=== PATIENT | female | born 2000 | race Caucasian/White ===

== ENCOUNTER 2024-10-09 13:41 | Outpatient (CLI) | payer OTHER, SELFPAY ==
--- OUTSIDE RECORDS SUMMARY | 2024-10-09 14:55 | XMS_ITS | Encounter Summary ---
Author Organization [facility] Address [address] [place] [address] Care Team Providers Care General Road Supervisor Name Role Phone Adele Rogers MD Primary Care Provider [phone] Reason for Visit * Reason Onset Date Comments MEDICATION REFILL 09/14/2016 Encounter Details Date Type Department Care Team (Late st Contact Info) Description 09/14/2016 Refill [facility] Pediatrics - Endocrinology [facility] [place] [address] Jesus Chandler APRN-[employer] F[employer]OR[employer]ERSON [address] [place] [address] MEDICATION REFILL Social History Tobacco Use Types Packs/Day Years Used Date Smoking Tobacco: Never Comments Unknown Sex and Gender Information Value Date Recorded Sex Assigned at Not on file Legal Sex Female 1:54 PM CDT Gender Identity Not on file Sexual Orientation Not on file documented as of this encounter Functional Status * Is person deaf or have serious hearing difficulty? Answer Date of Assessment Author No 09/02/2015 7:30 PM DEANDRET Charley Shelton RN * Is person blind or have serious difficulty seeing? Answer Date of Assessment Author No 09/02/2015 7:30 PM CDT Charley Shelton RN * Does person have serious difficulty walking/climbing stairs? Answer Date of Assessment Author No 09/02/2015 7:30 PM DEANDRET Charley Shelton RN * Does person have difficulty dressing/bathing? Answer Date of Assessment Author No 09/02/2015 7:30 PM CDT Charley Shelton RN * Does person have difficulty doing errands alone? Answer Date of Assessment Author No 09/02/2015 7:30 PM Charley Anderson RN documented as of this encounter Mental Status * Does person have difficulty concentrating/remembering/making decisions? Answer Entry Date Author No 09/02/2015 7:30 PM Charley Anderson RN documented in this encounter Plan of Treatment Not on file documented as of this encounter Visit Diagnoses Not on filedocumented in this encounter Care Teams General Road Supervisor Relationship Specialty Start Date End Date Adele Rogers MD [address] [place] [address] PCP - General Family Medicine 09/02/15 documented as of this encounter
--- OUTSIDE RECORDS SUMMARY | 2024-10-09 14:55 | XMS_ITS | Clinical Summary ---
Author Organization [address] Address [address] [place] [address] [place] [address] Care Team Providers Care Dredge Master Name Role Phone Flory Maciel MD Primary Care Provi peg Allergies No known active allergies Medications glucagon 1 mg kit Inject 1 mL (1 mg total) into the muscle as instructed 8 Active pen needle, diabetic 32 gauge x 5/32 needle 1 each by Not Applicable route 6 Active insulin syringe-needle U-100 1/2 mL 31 gauge x 15/64 syringe Use for injections daily when off insulin pump 7 Active insulin lispro (HumaLOG) 100 unit/mL insulin pen Humalog 4 units as needed if your pump does not work 1 pen 3 9 Active DEXCOM G6 SENSOR deviceIndication s:Type 1 diabetes mellitus without complication (HCC) 3 Devices every 30 (thirty) days 9 Device 3 0 Active DEXCOM G6 TRANSMITTER deviceIndication s:Type 1 diabetes mellitus without complication (HCC) 1 Device every 3 (three) months 3 Device 3 0 Active Omnipod Dash Insulin Pod cartridge 2 Active Baqsimi 3 mg/actuation spray,non-aeroso l Administer 1 spray into one nostril as needed 3 Active acetone, urine, test strip 1 strip by other route daily as needed (hyperglycemia) 100 strip 2 3 Active Additional Information Patient not taking.Reported on 06/08/2024 insulin lispro (HumaLOG, ADMELOG) 100 unit/mL vial for injection See Instructions, # 60 mL, 2 total refill(s), Acute 3 Active Slynd tablet tablet 4 Active insulin pump cart,automated,B T (Omnipod 5 G6 Pods, Gen 5,) cartridge CHANGE EVERY 48 HOURS DIRECTED 4 Active rimegepant (Nurtec ODT) tablet,disintegr atingIndications :Migraine with aura and without status migrainosus, not intractable Take 1 tablet (75 mg total) by mouth daily as needed (migraine) 8 tablet 2 4 Active Additional Information Patient not taking.Reported on 06/08/2024 Active Problems Problem Noted Date Diagnosed Date Well adult exam 08/28/2021 Overview (05/24/2024): Encouraged a healthy diet, and regular physical activity to her level Wear sun screen, seat belts No texting/drinking and driving Health Maintenance: 05/24/24 Last PAP: will request record Last Tdap: up to date Last HPV: had February, will request record-SA[facility] Last pneumonia: Patient plans to return to the office next week Last Flu: Up-to-date Last COVID: encouraged Assessment & Plan (05/24/2024 12:55 PM [facility] [employer] [facility]): Health Maintenance: 05/24/24 Last PAP: will request record Last Tdap: up to date Last HPV: had February, will request record-SAFB Last pneumonia: Patient plans to return to the office next week Last Flu: Up-to-date Last COVID: encouraged Assessment & Plan (11/30/2022 12:51 PM CDT): Encouraged a healthy diet, and regular physical activity to her level Wear sun screen, seat belts No texting/drinking and driving Health Maintenance: Last PAP: requesting [facility] pap Last Tdap: due Last HPV: due her last vaccine Last pneumonia: encouraged Last Flu: encouraged Last COVID: encouraged Assessment & Plan (08/28/2021 9:54 AM CDT): Encouraged a healthy diet, and regular physical activity to her level Wear sun screen, seat belts No texting/drinking and driving Health Maintenance: Last PAP: she is following with [facility], planning for pap in the summer Last Tdap: due tap Last pneumonia: reviewed Last Flu: encouraged Last COVID: up to date Type 1 diabetes mellitus with hyperglycemia 08/11 Assessment & Plan (05/24/2024 12:54 PM [employer] [employer]): Chronic. Above goal. Last A1c of 7.8 on 05/2023. Due for A1c, ACR ordered today. Continue to follow with endocrinology, managing insulin pump. Assessment & Plan (04/08/2022 3:48 PM CDT): Chronic, but not well controlled Follow up labs ordered Continue to follow with endo Will request eye exam Will order f/u labs Update me after her next endo appt Call for questions or concerns Assessment & Plan (08/28/2021 9:55 AM CDT): On an insulin pump, dexcom Following with endocrine Will order labs Continue to follow with endo Migraine with aura and witho ut status migrainosus, not intractable 08/28/2021 Assessment & Plan (05/24/2024 12:52 PM [employer]): Chronic. No recent migraines. We will recent script for Nurtec as she was unable to pick this up at her pharmacy last time. Assessment & Plan (04/08/2022 3:49 PM CDT): Chronic condition, not on medication Will have her see her eye doctor Will restart imitrex Keep track of her headaches Call for questions or concerns Assessment & Plan (08/28/2021 10:05 AM CDT): Will start imitrex -Keep a headache diary: Record date, day of week, and time of day as well precipitating and relieving factors -Avoid excessive fatigue (get adequate sleep), but avoid over sleeping on the weekend -Eat at regular times and do not miss meals -Limit foods associated which can make headaches worse like caffeine, chocolate, alcohol -Restrict physical exertion on hot days -Avoid glare or exposure to flickering lights -Avoid noise or strong smells (think perfume, piecer up) Acne vulgaris 08/08/2020 Assessment & Plan (08/28/2021 10:06 AM CDT): Requesting referral to derm Referral placed Assessment & Plan (08/08/2020 10:01 PM [facility]): Referral to derm placed Insulin pump in place 05/08/2019 Assessment & Plan (05/24/2024 12:52 PM [employer]): Stable. Managed by endocrinology Assessment & Plan (04/08/2022 3:49 PM CDT): Continue to follow with endo Assessment & Plan (08/28/2021 9:56 AM CDT): Continue to follow with endo Type 1 diabetes mellitus without complication Overview (11/22/2018): Diagnosed antibody positive 09/02/15; started OmniPod on 12/04/15. Last Assessment & Plan: 1) no changes today 2) must check bg at least 4 times daily 3) return in [address] Andre Assessment & Plan (08/28/2021 9:55 AM CDT): On an insulin pump, dexcom Following with endocrine Will order labs Continue to follow with endo Assessment & Plan (11/22/2018 2:07 PM CDT): Follows with endocrine Update me after your next appointment Continue working on a healthy lifestyle changes Consider diabetic diet/low carb Please have your eye doctor send me a copy of her note Referral placed call for questions or concerns Resolved Problems Problem Noted Date Diagnosed Date Resolved Date Encounter for surveillance of contraceptives 1 08/28/2021 Assessment & Plan (08/08/2020 10:02 PM [employer]): Referral to [facility] placed Acute URI 11/22/2018 08/28/2021 Assessment & Plan (08/08/2020 10:14 PM [employer]): Discussed viral nature of illness, treat symptomatically Tylenol/ibuprofen as needed, and can use medicine like mucinex or robitussin to help with the cough Increase fluids, rest and handwashing Warm saltwater gargles Consider a hot drink with honey Cool mist humidifier Encouraged to repeat COVID testing, and that we could also do Strep. She may have tested to early. Encouraged to self isolate, and to update me on Tuesday Please call if symptoms change or worsen, to the ER for anything emergent Assessment & Plan (11/22/2018 2:07 PM CDT): Discussed viral nature of illness, treat symptomatically Tylenol/ibuprofen as needed Increase fluids, rest and handwashing Warm saltwater gargles Hot water/hot tea with honey Saline rinses to nose at least twice daily No sharing cups or utensils Cool mist humidifier May use vicks vaporub on chest and feet as needed to help with cough Please call if symptoms change or worsen, to the ER for anything emergent Encounters Date Type Department Care Team Description 09/27/2024 Patient Message [facility] Family Medicine [address] [phone] Flory Maciel MD Referral Request from Last 3 Months Immunizations Immunization Administration Dates Next Due DTaP 04/03/2004, 2,2000,07/22,2000 HPV9 02/09/2016,09/10/2015 Hep A, Pediatric 05/02/2008,10/17/2007 Hep B, Adolescent or Pediatric 2000,2000,2000 HiB 06/14/2001,2000,2000 Hib (HbOC) 2000 IPV 04/03/2004, 2,2000,05/24 Influenza, Quadrivalent, Spl it, Preservative Free, Intramuscular 04/08/2022,05/09/2018,04/13/2016 Influenza, Unspecified 03/13/2024,2022,08/28/2021(Defer red: Patient Refused),03/13/2020(Deferred: Patient Refused) MMR 04/03/2004,06/14/2001 Meningococcal MCV4P (Menactra) 03/21/2018,2010 Pneumococcal Conjugate PCV 13 2000, 001,2000 Tdap 03/13/2024,04/13/2011 Varicella 10/17/2007,06/14/2001 Medical History Medical History Date Comments Type 1 diabetes mellitus wit hout complication (HCC) 09/04/2015 Diagnosed antibody positive 09/02/15; started OmniPod on 12/04/15. Last Assessment & Plan: 1) no changes today 2) must check bg at least 4 times daily 3) return in [address] Andre Migraines 2015 Family History Medical History Relation Name Comments Hyperlipidemia Father sam coon Relation Name Status Comments Father sam coon Alive Mother Alive Social History Tobacco Use Types Packs/Day Years Used Date Smoking Tobacco: Never Smokeless Tobacco: Never Alcohol Use Standard Drinks/Week Comments Never 0 (1 standard drink = 0.6 oz pur e alcohol) AUDIT-C Answer Date Recorded Q1: How often do you have a drink containing alc ohol? 2-3 times a week 05/24/2024 Q2: How many drinks containi ng alcohol do you have on a typical day when you are drinking? 3 or 4 05/24/2024 Q3: How often do you have si x or more drinks on one occasion? Never 05/24/2024 PHQ-2 Answer Date Recorded PHQ-2 Total Score (If total score is 3 or more points, staff should administer the PHQ-9) 0 06/08/2024 PHQ-9 Answer Date Recorded PHQ-9 Total Score 0 05/24/2024 Comments No Sex and Gender Information Value Date Recorded Sex Assigned at Not on file Legal Sex Female 9:06 PM [employer] Gender Identity Not on file Sexual Orientation Not on file Obstetrics History Last Filed Vital Signs Vital Sign Reading Time Taken Comments Blood Pressure 110/80 06/08/2024 9:47 AM [facility] [employer] [facility] Pulse 120 06/08/2024 9:47 AM [facility] [employer] [facility] Temperature 36.5 C (97.7 F) 06/08/2024 9:47 AM [facility] Respiratory Rate 16 06/08/2024 9:47 AM [facility] Oxygen Saturation 98% 06/08/2024 9:47 AM [facility] [employer] [facility] Inhaled Oxygen Concentration - - Weight 64.9 kg (143 lb) 06/08/2024 9:47 AM [facility] Height 162.6 cm (5' 4 ) 06/08/2024 9:47 AM [facility] Body Mass Index 24.55 06/08/2024 9:47 AM [facility] [employer] [facility] Plan of Treatment Health Maintenance Due Date Last Done Comments Hepatitis C Screening 2000 Pneumococcal vaccine <65 (1 of 1 - PPSV23) 2006 2000, 2000, 2000 HPV Vaccines (3 - 3-dose series) 05/03/2016 02/09/20 16, 09/10/2015 Dilated Eye Exam 11/05/2022 11/05/2021, 10/30/2020 Covid-19 Vaccine (3 - 2023-2 5 season) 2024 09/05/2020, 08/15/2020 Foot Exam 08/09/2024 08/09/2023, 11/12, 08/28/2021, Additional history exists Cervical Cancer Screening 08/18/2024 08/19/2023 Hemoglobin A1C 11/22/2024 05/24/2024, 05/14, 04/09/2022, Additional history exists Albumin Creatinine Ratio, Urine 05/24/2025 05/24/2024, 06/10/2023, 04/09/2022, Additional history exists Chlamydia and Gonorrhea (GC/ CT) Screening 05/24/2025 05/24/2024, 08/19/2023 Lipid Panel 05/24/2025 05/24/2024, 05/14, 04/09/2022, Additional history exists Regular Well Visit/Exam 18-64 05/24/2025, 11/30/2022, 11/30/2022, Additional history exists TSH Level 05/24/2025 05/24/2024, 05/14, 04/09/2022, Additional history exists eGFR 05/24/2025 05/24/2024, 05/14, 04/09/2022, Additional history exists Depression Screening 06/08/2025 06/08/2024, 05/24/2024, 05/24/2024, Additional history exists DTaP/Tdap/Td Vaccine (8 - Td or Tdap) 03/13/2034 03/13/2024, 04/13/2011, 04/03/2004, Additional history exists Hepatitis B Screening Completed 2000 , 2000, 2000 Varicella Vaccines Completed 10/17/2007, 06/14/2001 Influenza Vaccine Completed 03/13/2024, , 04/08/2022, Additional history exists Procedures Procedure Name Priority Date/Time Associated Diagnosis Comments EGFR Routine 05/24/2024 1:10 PM [facility] [employer] [facility] Screening for diabetes mellitus Type 1 diabetes mellitus with hyperglycemia (HCC) HEMOGLOBIN A1C Routine 05/24/2024 1:10 PM [facility] [employer] [facility] Screening for diabetes mellitus Type 1 diabetes mellitus with hyperglycemia (HCC) LIPID PANEL Routine 05/24/2024 1:10 PM [facility] [employer] Screening, lipid Type 1 diabetes mellitus with hyperglycemia (HCC) N. GONORRHOEAE/C. TRACHOMATIS AMPLIFICATION Routine 05/24/2024 1:10 PM [facility] [employer] [facility] Screen for STD (sexually transmitted disease) Exposure to STD ALBUMIN CREATININE RATIO, URINE Routine 05/24/2024 1:10 PM [facility] [employer] [facility] Type 1 diabetes mellitus with hyperglycemia (HCC) THYROID FUNCTION CASCADE Routine 05/24/2024 1:10 PM [facility] [employer] Screening for thyroid disorder HM PAP SMEAR WITH HPV Routine 08/19/2023 HM DIABETES EYE EXAM Routine 11/05/2021 from Last 3 Months or Most Recently Relevant to Health Maintenance Results * N. gonorrhoeae/C. trachomatis Amplification Urine (05/24/2024 1:10 PM [facility] [employer] [facility]) C. trachomatis Not Detected [facility] Comment:Testing performed by : [facility], [address] [facility], [place]., [address] N. gonorrhoeae Not Detected LARISA REZA Comment: Interpretive Data This assay detects Chlamydia trachomatis and Neisseria gonorrhoeae by nucleic acid amplification testing (NAAT). This assay has been cleared by the [place] Food and Drug administration. The performance characteristics of this test have been verified by the [facility] Molecular Infectious Disease laboratory. The performance characteristics of this test have not been evaluated in individuals less than 14 years of age. Current Interpretive Data was last revised on 2023. Testing performed by: [facility], [address] [place]., [address] Urine (None) 05/24/2024 1:10 PM [facility] [employer] [facility] 05/24/2024 9:04 PM [facility] MICROBIOLOGY - GENERA L ORDERABLES Final Result LARISA [address] [facility] Department [place] [address] [facility] * eGFR (05/24/2024 1:10 PM [employer]) Pathologist [facility] eGFR >90 >=60 mL/min/1. 73 m2 Comment: Interpretive Data Reference Interval Normal >/= 90 mL/min/1.73m2 Mildly decreased* 60 - 89 mL/min/1.73m2 Mildly to moderately decreased 45 - 59 mL/min/1.73m2 Moderately to severely decreased 30 - 44 mL/min/1.73m2 Severely decreased 15 - 29 mL/min/1.73m2 Kidney Failure < 15 mL/min/1.73m2 *Relative to young adult level Estimated glomerular filtration rate is determined by the 2020 CKD-EPI equation recommended by the National Kidney Foundation (A Unifying Approach to GFR Estimation: Recommendations of the NKF-ASK Task Force on Reassessing the Inclusion of Race in Diagnosing Kidney Disease, JASN 202). The CKD-EPI equation should not be used for patients with unstable renal function and has not been validated in children and those over 70. Current interpretive data was last reviewed 2021. Testing performed by: [facility], [address] [place] [address]., [address] Blood 05/24/2024 1:10 PM [facility] [employer] [facility] 05/24/2024 6:13 PM [facility] [employer] [facility] us [facility] BLOOD ORDERABLES Sandra l Result Performing Organization Address [facility] Co de Phone Number [place] [address] [place] [address] * Thyroid Function [place]att[place] (05/24/2024 1:10 PM [facility] [employer]) TSH 2.16 0.30 - 4.20 mcIUnit/mL Comment:Testing performed by : [address] [address] Blood 05/24/2024 1:10 PM [facility] [employer] [facility] 05/24/2024 6:13 PM [employer] [employer] us [facility] BLOOD ORDERABLES Sandra l Result Performing Organization Address [facility] de Phone Number [address] [place] [address] * Albumin Creatinine Ratio, Urine (05/24/2024 1:10 PM [employer]) Albumin Ur 15.5 mg/L Comment: Interpretive Data No reference range established. Current interpretive data was last revised 2018. Testing performed by: [address] [address] Creatinine Ur 105.0 mg/dL LARISA Comment: Interpretive Data No reference range established. Current interpretive data was last revised 2018. Testing performed by: [address] [address] Albumin Creatinine Ratio, Ur 15 1 - 29 mg/g LARISA Comment:Testing performed by : [address] [address] Urine 05/24/2024 1:10 PM [employer] [employer] 05/24/2024 6:13 PM [employer] us [facility] URINE ORDERABLES Sandra l Result LARISA [address] [facility] [place] [address] * (ABNORMAL) Hemoglobin A1c (05/24/2024 1:10 PM [facility] [employer]) Hgb A1C 8.2(H) 4.0 - 5.6 % Comment:Testing performed by : [address] [address] Estimated Average Glucose 189 mg/dL LARISA Comment: The ADA recommends reporting an estimated Average Glucose (eAG) with all Hemoglobin A1c results using the equation derived from a study of 507 normal and diabetic adults. Minority populations were underrepresented and children were not included. (Diabetes Care 31:4092-9204, 2008). The eAG is not equivalent to a fasting glucose. Testing performed by: [address] [address] Blood 05/24/2024 1:10 PM [facility] [employer] [facility] 05/24/2024 6:13 PM [facility] [employer] [facility] BLOOD ORDERABLES Sandra l Result Performing Organization Address [facility]/State/ZIP Co de Phone Number [address] [place] [address] * (ABNORMAL) Lipid panel (05/24/2024 1:10 PM [facility] [employer]) Cholesterol 209(H) 30 - 199 mg/dL Comment: Interpretive Data Ages < or = 19 years Acceptable: <170 mg/dL Borderline high: 170-199 mg/dL High: >or= 200 mg/dL Ages > or = 20 years Desirable: <200 mg/dL Borderline high: 200-239 mg/dL High: >or= 240 mg/dL Literature References: 1. Expert Panel on Integrated Guidelines for Cardiovascular Health and Risk Reduction in Children and Adolescents. Pediatrics 2011;128:S213 2. NCEP Expert Panel. Circulation 2004;110:227 Current Interpretive Data was last revised on 2018. Testing performed by: [address] [address] Triglycerides 83 <=149 mg/dL LARISA Comment: Interpretive Data Ages < or = 9 years Acceptable: <75 mg/dL Borderline high: 75-99 mg/dL High: >or= 100 mg/dL Ages 10 to 20 years Acceptable: <90 mg/dL Borderline high: 90-129 mg/dL High: >or= 130 mg/dL Ages > or = 20 years Desirable: <150 mg/dL Borderline high: 150-199 mg/dL High: 200-499 mg/dL Very high: >or= 499 mg/dL Literature References: 1. Expert Panel on Integrated Guidelines for Cardiovascular Health and Risk Reduction in Children and Adolescents. Pediatrics 2011;128:S213 2. NCEP Expert Panel. Circulation 2004;110:227 Current Interpretive Data was last revised on 2018. Testing performed by: [address] [address] HDL 62 >=40 mg/dL LARISA Comment: Interpretive Data Ages < or = 19 years Acceptable: >45 mg/dL Borderline low: 40-45 mg/dL Low: <40 mg/dL Ages > or = 20 years Desirable: >or= 60 mg/dL Low: <40 mg/dL Literature References: 1. Expert Panel on Integrated Guidelines for Cardiovascular Health and Risk Reduction in Children and Adolescents. Pediatrics 2011;128:S213 2. NCEP Expert Panel. Circulation 2004;110:227 Current Interpretive Data was last revised on 2018. Testing performed by: [address] [address] LDL, calculated 132(H) <=129 mg/dL LARISA Comment: Interpretive Data Ages < or = 19 years Acceptable: <110 mg/dL Borderline high: 110-129 mg/dL High: >or= 130 mg/dL Ages > or = 20 years Optimal: <100 mg/dL Near optimal: 100-129 mg/dL Borderline high: 130-159 mg/dL High: >160 mg/dL Calculated using the Gabriel LDL-C estimating equation. This equation was implemented on 2024. Prior to this date LDL-C was estimated using the Friedewald equation. Literature References: 1. Expert Panel on Integrated Guidelines for Cardiovascular Health and Risk Reduction in Children and Adolescents. Pediatrics 2011;128:S213 2. NCEP Expert Panel. Circulation 2004;110:227 3. Rios M et al. CHAYA Cardiol. 2019October 11;5(5):540-548. doi: 10.1001/[email or web address].2020.0013 Current Interpretive Data was last revised on 2024. Testing performed by: [address] [address] Non-HDL Cholesterol 147 mg/dL LARISA Comment: Interpretive Data Ages < or = 19 years Acceptable: <120 mg/dL Borderline high: 120-144 mg/dL High: >145 mg/dL Ages > or = 20 years When triglycerides are >200 mg/dL, Non-HDL cholesterol is a secondary target of therapy with treatment goals that are 30 mg/dL greater than the LDL cholesterol target. Literature References: 1. Expert Panel on Integrated Guidelines for Cardiovascular Health and Risk Reduction in Children and Adolescents. Pediatrics 2011;128:S213 2. NCEP Expert Panel. Circulation 2004;110:227 Current Interpretive Data was last revised on 2018. Testing performed by: [address] [address] Chol/HDL ratio 3 LARISA Comment:Testing performed by : [address] [address] Blood 05/24/2024 1:10 PM [facility] [employer] [facility] 05/24/2024 6:13 PM [facility] [employer] [facility] Result [facility] Mabel ELIZON[facility] BLOOD ORDERABLES Sandra l Result Performing Organization Address City/State/[facility] Co de Phone Number [facility] [address] [facility] Department [place] [address] * PAP SMEAR WITH HPV (08/19/2023) Historical Provider HEALTH MAINTENANCE Final Result * DIABETES EYE EXAM (11/05/2021) Historical Provider HEALTH MAINTENANCE Final Result from Last 3 Months or Most Recently Relevant to Health Maintenance Insurance [facility] COMMERCIAL GENERIC Member Subscriber Plan / Payer (Ef fective 2021-Present) Name:Jaymie Ashanti M Relation to Subscriber:Self Name:Ashanti Coon Payer ID:[id number] Type:COMMERCIAL Address: [facility] [id number] [place], [place] Care Teams Dredge Master Relationship Specialty Start Date End Date Flory Maciel MD [address] [place] [address] PCP - General Family Medicine 11/16/18
--- OUTSIDE RECORDS SUMMARY | 2024-10-09 14:55 | XMS_ITS | Encounter Summary ---
Author Organization [facility] Healthcare Address [address] [place] [address] Care Team Providers Care Lead Investigator Name Role Phone Flory Maciel MD Primary Care Provi peg Reason for Referral * Consultation (Routine) - Closed Specialty Diagnoses / Procedures Referred By Contac t Referred To Contact Endocrinology Diagnoses Type 1 diabetes mellitus with hyperglycemia (HCC) Flory Maciel MD [facility] [address] [place] [address] Phone: tel: fax: Camelia Garza, TOOL SHAPER SET UP OPERATOR [address] [address] Phone: tel: fax: Referral ID Status Reason Start Date Expiration Date V isits Requested Visits Authorized [id number] Closed Specialty Services Required 09/28/2024 10/28/2025 6 6 Question Answer Please select the performing region: External Order [171] # of visits: 6 Encounter Details Date Type Department Care Team (Late st Contact Info) Description 09/27/2024 Patient Message [facility] Medical Group Family Medicine [address] [phone] Flory Maciel MD [facility] [address] [place], [place] [phone] Referral Request Social History Tobacco Use Types Packs/Day Years [...] on file Legal Sex Female 9:06 PM RESOURCE FORESTER Gender Identity Not on file Sexual Orientation Not on file documented as of this encounter Miscellaneous Notes * Telephone Encounter - Sharon Hernández - 09/28/2024 7:47 AM CDT form faxed for approval. * Telephone Encounter - Ashatni Sylvester MA - 09/28/2024 7:32 AM CDT Referral placed documented in this encounter Plan of Treatment Scheduled Referrals Name Type Priority Associated Diagnoses Orde r Schedule Ambulatory referral to Endocrinology Outpatient Referral Routine Type 1 diabetes mellitus with hyperglycemia (HCC) Expected: 10/12/2024 (Approximate), Expires: 09/28/2025 documented as of this encounter Visit Diagnoses Diagnosis Type 1 diabetes mellitus with hyperglycemia (HCC)- Primary documented in this encounter Care Teams Lead Investigator Relationship Specialty Start Date End Date Flory Maciel MD [facility] [address] [place] [address] PCP - General Family Medicine 11/16/18 documented as of this encounter
--- OUTSIDE RECORDS SUMMARY | 2024-10-09 14:55 | XMS_ITS | Encounter Summary ---
Author Organization [facility] Address [address] [place] [address] Care Team Providers Care Air Drier Name Role Phone Adele Rogers MD Primary Care Provider [phone] Reason for Visit * Reason Onset Date Comments MEDICATION REFILL 09/02/2015 Encounter Details Date Type Department Care Team (Late st Contact Info) Description 09/02/2015 Refill [facility] Pediatrics - Diabetes [address] [address] Huyen Andre MD MEDICATION REFILL Social History Tobacco Use Types Packs/Day Years Used Date Smoking Tobacco: Never Comments Unknown Sex and Gender Information Value Date Recorded Sex Assigned at Not on file Legal Sex Female 1:54 PM CDT Gender Identity Not on file Sexual Orientation Not on file documented as of this encounter Plan of Treatment Not on file documented as of this encounter Visit Diagnoses Not on filedocumented in this encounter Care Teams Air Drier Relationship Specialty Start Date End Date Adele Rogers MD [address] [facility] [place], [place] [phone] PCP - General Family Medicine 09/02/15 documented as of this encounter
--- OUTSIDE RECORDS SUMMARY | 2024-10-09 14:55 | XMS_ITS | Referral Summary ---
Author Organization [address] Address [address] [place] [phone] Care Team Providers Care Weapons Designer Name Role Phone Flory Maciel MD Primary Care Provi peg Encounters Date Type Department Care Team Description 09/27/2024 Patient Message [facility] Medical [facility] Family Medicine [address] [place] [phone] Flory Maciel MD Referral Request from Last 3 Months Allergies No known active allergies Medications glucagon [...] encouraged Assessment & Plan (05/24/2024 12:55 PM GRADE FOREMAN): Health Maintenance: 05/24/24 Last PAP: will request [...] and driving Health Maintenance: Last PAP: requesting CENTRAL SUPPLY CLERK pap Last Tdap: due Last HPV: due her last vaccine Last pneumonia: encouraged Last Flu: encouraged Last COVID: encouraged Assessment & Plan (08/28/2021 9:54 AM CDT): Encouraged a healthy diet, and regular physical activity to her level Wear sun screen, seat belts No texting/drinking and driving Health Maintenance: Last PAP: she is following with CENTRAL SUPPLY CLERK, planning for pap in the summer Last Tdap: due tap Last pneumonia: reviewed Last Flu: encouraged Last COVID: up to date Type 1 diabetes mellitus with hyperglycemia 08/11 Assessment & Plan (05/24/2024 12:54 PM GRADE FOREMAN): Chronic. Above goal. Last A1c of 7.8 [...] 08/28/2021 Assessment & Plan (05/24/2024 12:52 PM GRADE FOREMAN): Chronic. No recent migraines. [facility] was [facility] to [facility] this [...] -Avoid noise or strong smells (think perfume, account coordinator) Acne vulgaris 08/08/2020 Assessment & Plan (08/28/2021 10:06 AM CDT): Requesting referral to derm Referral placed Assessment & Plan (08/08/2020 10:01 PM GRADE FOREMAN): Referral to derm placed Insulin pump in place 05/08/2019 Assessment & Plan (05/24/2024 12:52 PM GRADE FOREMAN): Stable. Managed by endocrinology Assessment & Plan [...] 08/28/2021 Assessment & Plan (08/08/2020 10:02 PM GRADE FOREMAN): Referral to CENTRAL SUPPLY CLERK placed Acute URI 11/22/2018 08/28/2021 Assessment & Plan (08/08/2020 10:14 PM GRADE FOREMAN): Discussed viral nature of illness, treat symptomatically [...] worsen, to the ER for anything emergent Immunizations Immunization Administration Dates Next Due DTaP 04/03/2004, 2,2000,07/22,2000 HPV9 02/09/2016,09/10/2015 Hep A, Pediatric 05/02/2008,10/17/2007 Hep B, Adolescent or Pediatric 2000,2000,2000 HiB 06/14/2001,2000,2000 Hib (HbOC) 2000 IPV 04/03/2004, 2,2000,05/24 Influenza, Quadrivalent, Spl it, Preservative Free, Intramuscular 04/08/2022,05/09/2018,04/13/2016 Influenza, Unspecified 03/13/2024,2022,08/28/2021(Defer red: Patient Refused),03/13/2020(Deferred: Patient Refused) MMR 04/03/2004,06/14/2001 Meningococcal MCV4P (Menactra) 03/21/2018,2010 Pneumococcal Conjugate PCV 13 2000, 001,2000 Tdap 03/13/2024,04/13/2011 Varicella 10/17/2007,06/14/2001 Social History Tobacco Use Types Packs/Day Years [...] on file Legal Sex Female 9:06 PM GRADE FOREMAN Gender Identity Not on file Sexual Orientation Not on file Last Filed Vital Signs Vital Sign Reading Time Taken Comments Blood Pressure 110/80 06/08/2024 9:47 AM GRADE FOREMAN Pulse 120 06/08/2024 9:47 AM GRADE FOREMAN Temperature 36.5 C (97.7 F) 06/08/2024 9:47 AM GRADE FOREMAN Respiratory Rate 16 06/08/2024 9:47 AM GRADE FOREMAN Oxygen Saturation 98% 06/08/2024 9:47 AM GRADE FOREMAN Inhaled Oxygen Concentration - - Weight 64.9 kg (143 lb) 06/08/2024 9:47 AM GRADE FOREMAN Height 162.6 cm (5' 4 ) 06/08/2024 9:47 AM GRADE FOREMAN Body Mass Index 24.55 06/08/2024 9:47 AM GRADE FOREMAN Plan of Treatment Not on file Procedures Procedure Name Priority Date/Time Associated Diagnosis Comments EGFR Routine 05/24/2024 1:10 PM GRADE FOREMAN Screening for diabetes mellitus Type 1 diabetes mellitus with hyperglycemia (HCC) HEMOGLOBIN A1C Routine 05/24/2024 1:10 PM GRADE FOREMAN Screening for diabetes mellitus Type 1 diabetes mellitus with hyperglycemia (HCC) LIPID PANEL Routine 05/24/2024 1:10 PM GRADE FOREMAN Screening, lipid Type 1 diabetes mellitus with hyperglycemia (HCC) N. GONORRHOEAE/C. TRACHOMATIS AMPLIFICATION Routine 05/24/2024 1:10 PM GRADE FOREMAN Screen for STD (sexually transmitted disease) Exposure to STD ALBUMIN CREATININE RATIO, URINE Routine 05/24/2024 1:10 PM GRADE FOREMAN Type 1 diabetes mellitus with hyperglycemia (HCC) THYROID FUNCTION CASCADE Routine 05/24/2024 1:10 PM GRADE FOREMAN Screening for thyroid disorder HM PAP SMEAR WITH HPV Routine 08/19/2023 HM DIABETES EYE EXAM Routine 11/05/2021 from Last 3 Months or Most Recently Relevant to Health Maintenance Results * N. gonorrhoeae/C. trachomatis Amplification Urine (05/24/2024 1:10 PM GRADE FOREMAN) C. trachomatis Not Detected [facility] Comment:Testing performed by : [facility], [address] [place]., [address] N. gonorrhoeae Not Detected LARISA REZA Comment: Interpretive Data This assay detects Chlamydia trachomatis and Neisseria gonorrhoeae by nucleic acid amplification testing (NAAT). This assay has been cleared by the [place] Food and Drug administration. The performance characteristics of this test have been verified by the [facility] Molecular Infectious Disease laboratory. The performance characteristics of this test have not been evaluated in individuals less than 14 years of age. Current Interpretive Data was last revised on 2023. Testing performed by: [facility], [address] [place]., [address] Urine (None) 05/24/2024 1:10 PM GRADE FOREMAN 05/24/2024 9:04 PM GRADE FOREMAN Mabel ELIZONDO LAB MICROBIOLOGY - GENERA L ORDERABLES Final Result Performing Organization Address [facility] de Phone Number LARISA [address] [place], [place] [id number] BJ * eGFR (05/24/2024 1:10 PM GRADE FOREMAN) eGFR >90 >=60 mL/min/1. 73 m2 Comment: [...] of Race in Diagnosing Kidney Disease, JASN 2020). The CKD-EPI equation should not be used for patients with unstable renal function and has not been validated in children and those over 70. Current interpretive data was last reviewed 2021. Testing performed by: [address] [address] Blood 05/24/2024 1:10 PM GRADE FOREMAN 05/24/2024 6:13 PM GRADE FOREMAN Mabel ELIZONDO LAB BLOOD ORDERABLES Sandra l Result Performing Organization Address [facility]/ZIP Co de Phone Number LARISA [address] [facility] [place] [address] * Thyroid Function [place] (05/24/2024 1:10 PM GRADE FOREMAN) TSH 2.16 0.30 - 4.20 mcIUnit/mL Comment:Testing performed by : [address] [address] Blood 05/24/2024 1:10 PM GRADE FOREMAN 05/24/2024 6:13 PM GRADE FOREMAN Mabel ELIZONDO LAB BLOOD ORDERABLES Sandra l Result Performing Organization Address [facility] Co de Phone Number LARISA [address] [facility] [place] [address] * Albumin Creatinine Ratio, Urine (05/24/2024 1:10 PM GRADE FOREMAN) Albumin Ur 15.5 mg/L Comment: Interpretive Data No reference range established. Current interpretive data was last revised 2018. Testing performed by: [address] [address] Creatinine Ur 105.0 mg/dL LARISA Comment: Interpretive Data No reference range established. Current interpretive data was last revised 2018. Testing performed by: [address] [address] Albumin Creatinine Ratio, Ur 15 1 - 29 mg/g LARISA Comment:Testing performed by : [address] [address] Urine 05/24/2024 1:10 PM GRADE FOREMAN 05/24/2024 6:13 PM GRADE FOREMAN Result Jaden Mabel ELIZONDO LAB URINE ORDERABLES Sandra l Result Performing Organization Address [facility] de Phone Number [place] [phone] [facility] [place] [address] * (ABNORMAL) Hemoglobin A1c (05/24/2024 1:10 PM GRADE FOREMAN) Hgb A1C 8.2(H) 4.0 - 5.6 % Comment:Testing performed by : [address] [address] Estimated Average Glucose 189 mg/dL LARISA Comment: The ADA recommends reporting an estimated Average Glucose (eAG) with all Hemoglobin A1c results using the equation derived from a study of 507 normal and diabetic adults. Minority populations were underrepresented and children were not included. (Diabetes Care 31:7917-2502, 2008). The eAG is not equivalent to a fasting glucose. Testing performed by: [address] [address] Blood 05/24/2024 1:10 PM GRADE FOREMAN 05/24/2024 6:13 PM GRADE FOREMAN Mabel ELIZONDO LAB BLOOD ORDERABLES Sandra l Result LARISA [address] [facility] Department [place] [address] * (ABNORMAL) Lipid panel (05/24/2024 1:10 PM GRADE FOREMAN) Cholesterol 209(H) 30 - 199 mg/dL Comment: [...] last revised on 2018. Testing performed by: [facility], [address] [place] [address]., [address] Triglycerides 83 <=149 mg/dL LARISA Comment: Interpretive [...] last revised on 2018. Testing performed by: [facility], [address] [place] [address]., [address] HDL 62 >=40 mg/dL LARISA Comment: Interpretive [...] last revised on 2018. Testing performed by: [address] [address] LDL, calculated 132(H) <=129 mg/dL LARISA Comment: [...] 2. NCEP Expert Panel. Circulation 2004;110:227 3. Gabriel Christianson et al. CHAYA Cardiol. 2020 October 11;5(5):540-548. doi: 10.1001/jamacardio.2020.0013 Current Interpretive Data was last revised on 2024. Testing performed by: [address] [address] Non-HDL Cholesterol 147 mg/dL LARISA Comment: Interpretive [...] last revised on 2018. Testing performed by: [facility], [address] [place] [address]., [address] Chol/HDL ratio 3 LARISA Comment:Testing performed by : [facility], [address] [place] [address]., [address] Blood 05/24/2024 1:10 PM GRADE FOREMAN 05/24/2024 6:13 PM GRADE FOREMAN Mabel ELIZONDO LAB BLOOD ORDERABLES Sandra carrillo Result LARISA [address] [facility] Department [place] [address] * PAP SMEAR WITH HPV (08/19/2023) Historical Provider HEALTH MAINTENANCE Final Result * DIABETES EYE EXAM (11/05/2021) Historical Provider HEALTH MAINTENANCE Final Result from Last 3 Months or Most Recently Relevant to Health Maintenance Insurance * Guarantor: Ashanti Pimentel Account Type Relation to Patient Date of Phone Billing Address Personal/Family Self [address] [place] [address] [place] [address] [facility] CLAIMS [facility] CLAIM[facility] Member Subscriber Plan / Payer (Ef fective 2018-Present) Name:Ashanti Pimentel Relation to Subscriber:Self Name:Ashanti Pimentel Payer ID:[id number] (NAIC) Group ID:Not on file Type: Address: [place] [phone] [employer] Care Teams Weapons Designer Relationship Specialty Start Date End Date Flory Maciel MD [address] [place] [address] PCP - General Family Medicine 11/16/18
--- OUTSIDE RECORDS SUMMARY | 2024-10-09 14:55 | XMS_ITS | Encounter Summary ---
Author Organization [facility] Address [address] [place] [address] Care Team Providers Care Felled Seam Operator Name Role Phone Adele Rogers MD Primary Care Provider [phone] Reason for Visit * Reason Onset Date Comments Refill Request 08/27/2016 Keto stix are no t carried at [facility] pharmacy- they have a limited formulary. Please send to outside pharmacy. Encounter Details Date Type Department Care Team (Late st Contact Info) Description 08/27/2016 Telephone [facility] - Diabetes [place] [phone] [place] [address] Jesus Chandler APRN-DIRECTOR OF PHYSICAL SECURITY [address] [place] [phone] Refill Request (Keto stix are not carried at [facility] pharmacy- they have a limited formulary. Please send to outside pharmacy. ) Social History Tobacco Use Types Packs/Day Years [...] Author No 09/02/2015 7:30 PM CDT Charley Shelton, RN * Is person blind or have serious difficulty seeing? Answer Date of Assessment Author No 09/02/2015 7:30 PM Charley Anderson RN * Does person have serious difficulty walking/climbing stairs? Answer Date of Assessment Author No 09/02/2015 7:30 PM Charley Anderson RN * Does person have difficulty dressing/bathing? Answer Date of Assessment Author No 09/02/2015 7:30 PM Charley Anderson RN * Does person have difficulty doing [...] on filedocumented in this encounter Care Teams Felled Seam Operator Relationship Specialty Start Date End Date Adele Rogers MD [address] [place] [address] PCP - General Family Medicine 09/02/15 documented as of this encounter
--- OUTSIDE RECORDS SUMMARY | 2024-10-09 14:55 | XMS_ITS | Encounter Summary ---
Author Organization [facility] Address [address] [place] [address] Care Team Providers Care Superintendent Container Terminal Name Role Phone Adele Rogers MD Primary Care Provider [phone] Reason for Visit * Reason Onset Date Comments MEDICATION REFILL 06/30/2017 Encounter Details Date Type Department Care Team (Late st Contact Info) Description 06/30/2017 Refill [facility] Pediatrics - Endocrinology [facility] [place] [address] Jesus Chandler APRN-TUNNEL KILN REPAIRER [address] [place] [address] MEDICATION REFILL Social History Tobacco Use Types Packs/Day Years Used Date Smoking Tobacco: Never Smokeless Tobacco: Never Comments No Sex and Gender Information Value Date Recorded Sex Assigned at Not on file Legal Sex Female 1:54 PM CDT Gender Identity Not on file Sexual Orientation Not on file documented as of this encounter Functional Status * Is person deaf or have serious hearing difficulty? Answer Date of Assessment Author No 09/02/2015 7:30 PM CDT Charley Shelton RN * Is person blind [...] on filedocumented in this encounter Care Teams Superintendent Container Terminal Relationship Specialty Start Date End Date Adele Rogers MD [address] [place] [address] PCP - General Family Medicine 09/02/15 documented as of this encounter
--- OUTSIDE RECORDS SUMMARY | 2024-10-09 14:55 | XMS_ITS | Clinical Summary ---
Author Organization [facility] Address [address] [place] [address] Care Team Providers Care Systems Engineering Manager Name Role Phone Flory Maciel MD Primary Care Provider Allergies No known active allergies Medications Continuous Blood Gluc Sensor (DEXCOM G6 SENSOR) [facility] Active folic acid 1 MG tablet 8 Active Cholecalciferol (D 5000) 125 MCG (5000 UT) Cap 8 Active Insulin Disposable Pump (OMNIPOD DASH 5 PACK PODS) Misc 0 Active Continuous Blood Gluc Transmit (DEXCOM G6 TRANSMITTER) MiscIndications:Ty pe 1 diabetes mellitus with hyperglycemia (CMS/HCC HHS/HCC) 1 Device by Other route every 3 (three) months. 1 each 3 0 Active Continuous Blood Gluc Sensor (DEXCOM G6 SENSOR) MiscIndications:Ty pe 1 diabetes mellitus with hyperglycemia (CMS/HCC HHS/HCC) Once every 10 days 3 each 11 0 Active glucagon (GLUCAGON EMERGENCY) 1 MG injectionIndicatio ns:Type 1 diabetes mellitus with hyperglycemia (CMS/HCC HHS/HCC) Inject 1 mg into the muscle once as needed. 1 kit 3 0 Active Active Problems Problem Noted Date Diagnosed Date DM (diabetes mellitus), type 1 (CMS/HCC HHS/HCC) 12/06/[address] 12/06/2019 Overview (12/06/2019): Omni pod Family History Medical History Relation Comments Hypertension Father Diabetes Maternal Grandfather Diabetes Paternal Grandfather Hypertension Paternal Grandfather Diabetes Paternal Uncle Hypertension Paternal Uncle Relation Status Comments Father Alive Maternal Grandfather Alive Mother Alive Paternal Grandfather Alive Paternal Uncle Alive Social History Tobacco Use Types Packs/Day Years Used Date Smoking Tobacco: Never Smokeless Tobacco: Never Alcohol Use Standard Drinks/Week Comments Never 0 (1 standard drink = 0.6 oz pur e alcohol) AUDIT-C Answer Date Recorded Frequency of Alcohol Consumption Never 12/06/2019 Average Number of Drinks Not on file 020 Frequency of Binge Drinking Not on file 11/12 PHQ-2 Answer Date Recorded PHQ-2 Score - If the patient scores above 3, please move on to questions 3-9 0 04/18/2020 Comments Unknown Sex and Gender Information Value Date Recorded Sex Assigned at Not on file Legal Sex Female 7:12 PM CDT Gender Identity Not on file Sexual Orientation Not on file Last Filed Vital Signs Vital Sign Reading Time Taken Comments Blood Pressure 108/72 04/18/2020 10:48 AM CHIEF SOLUTION ARCHITECT Pulse 112 04/18/2020 10:48 AM CHIEF SOLUTION ARCHITECT Temperature 37.2 C (98.9 F) 04/18/2020 10:48 AM CHIEF SOLUTION ARCHITECT Respiratory Rate 20 04/18/2020 10:48 AM CHIEF SOLUTION ARCHITECT Oxygen Saturation 98% 04/18/2020 10:48 AM CHIEF SOLUTION ARCHITECT Inhaled Oxygen Concentration - - Weight 57.6 kg (127 lb) 04/18/2020 10:48 AM CHIEF SOLUTION ARCHITECT Height 162.6 cm (5' 4 ) 04/18/2020 10:48 AM CHIEF SOLUTION ARCHITECT Body Mass Index 21.8 04/18/2020 10:48 AM CHIEF SOLUTION ARCHITECT Plan of Treatment Health Maintenance Due Date Last Done Comments Cervical Cancer Screening Pap Smear (Age 21 to 29) Every 3 Years 2000 Cervical Cancer Screening 2000 Kidney Health Evaluation 2000 Lipid Panel 2000 Annual Physical 2003 Pneumococcal Vaccine: Pediatrics (0 to 5 Years) and At-Risk Patients (6 to 49 Years) (1 of 1 - PPSV23) 2006 2000, 2000, 2000 HPV Vaccines (3 - 3-dose series) 05/03/2016 02/09/2016, 09/10/2015 Diabetes: Retinopathy Eye Exam 2018 Hepatitis C 2018 Hemoglobin A1C 10/16/2020 04/18/2020, 11/12, 05/08/2019, Additional history exists DTaP, Tdap and Td Vaccines (7 - Td or Tdap) 04/13/2021 04/13/2011, 04/03/2004, 10/18/2001, Additional history exists COVID-19 Vaccine (2023- season) 2024 Hepatitis B Vaccines Completed 2000, 2000, 2000 Meningococcal Vaccine Aged Out 03/21/2018, 011 No longer eligible based on patient's age to complete this topic Meningococcal B Vaccine Aged Out No l onger eligible based on patient's age to complete this topic RSV Immunizations Under 20 Months Aged Out No longer eligible based on patient's age to complete this topic Procedures Procedure Name Priority Date/Time Associated Diagnosis Comments HEMOGLOBIN, GLYCOSYLATED Routine 04/18/2020 11:02 AM CHIEF SOLUTION ARCHITECT Type 1 diabetes mellitus with hyperglycemia from Last 3 Months or Most Recently Relevant to Health Maintenance Results * HEMOGLOBIN, GLYCOSYLATED (04/18/2020 11:02 AM CHIEF SOLUTION ARCHITECT) HGB A1C 10.1 % ROSALVA GONZALEZ 04/18/2020 11:0 2 AM CHIEF SOLUTION ARCHITECT Luis Antonio Haines MD LABORATORY Final Result [facility]ROSALVA GALINDO [address] [facility] [address] [place] [address], from Last 3 Months or Most Recently Relevant to Health Maintenance Insurance Care Teams Systems Engineering Manager Relationship Specialty Start Date End Date Flory Maciel MD [address] [facility] [address] [place] [address] PCP - General FAMILY PRACTICE 11/21/19
--- OUTSIDE RECORDS SUMMARY | 2024-10-09 14:55 | XMS_ITS | Encounter Summary ---
Author Organization [facility] Address [address] [place] [address] Care Team Providers Care Oyster Sorter Name Role Phone Adele Rogers MD Primary Care Provider [phone] Reason for Visit * Reason Onset Date Comments MEDICATION REFILL 09/14/2016 Encounter Details Date Type Department Care Team (Late st Contact Info) Description 09/14/2016 Refill [facility] Pediatrics - Endocrinology [facility] [place] [address] Jesus Chandler APRN-SUPERVISOR PAINTING [address] [place] [address] MEDICATION REFILL Social History Tobacco Use Types [...] 09/02/2015 7:30 PM CDT Charley Shelton RN documented as of this encounter Mental Status * Does person have difficulty concentrating/remembering/making decisions? Answer Entry Date Author No 09/02/2015 7:30 PM CDT Charley Shelton RN documented in this encounter Miscellaneous Notes * Telephone Encounter - Luther Mccloud RN - 09/14/2016 3:36 PM CDT Mom is aware that the user manual of Omnipod pump recommends Freestyle test strips, not Freestlye Lite. Mom still wants Freestyle Lite strips ordered. Mom doesn't need syringes ordered at this time, she is aware that [facility] only carries the 5/16'' size, she will call if she needs syringes. documented in this encounter Plan of Treatment Not on file documented as of this encounter Visit Diagnoses Diagnosis Type 1 diabetes mellitus without complication (HCC)- Primary Type I (juvenile type) diabetes mellitus without mention of complication, not stated as uncontrolled documented in this encounter Care Teams Oyster Sorter Relationship Specialty Start Date End Date Adele Rogers MD [address] [place] [address] PCP - General Family Medicine 09/02/15 documented as of this encounter
--- OUTSIDE RECORDS SUMMARY | 2024-10-09 14:55 | XMS_ITS | Encounter Summary ---
Author Organization [facility] Address [address] [place] [address] Care Team Providers Care Uniform Designer Name Role Phone Adele Rogers MD Primary Care Provider [phone] Reason for Visit * Reason Onset Date Comments MEDICATION REFILL 09/09/2015 Encounter Details Date Type Department Care Team (Late st Contact Info) Description 09/09/2015 Refill [facility] Pediatrics - Diabetes [address] [address] Jesus Chandler APRN-OVERHEAD CRANE TRUCK LOADER [address] [place] [phone] MEDICATION REFILL Social History Tobacco Use Types [...] on filedocumented in this encounter Care Teams Uniform Designer Relationship Specialty Start Date End Date Adele Rogers MD [address] [place] [address] PCP - General Family Medicine 09/02/15 documented as of this encounter
--- OUTSIDE RECORDS SUMMARY | 2024-10-09 14:55 | XMS_ITS | Encounter Summary ---
Author Organization [facility] Address [address] [place] [address] Care Team Providers Care Direct Sales Representative Name Role Phone Adele Rogers MD Primary Care Provider [phone] Reason for Visit * Reason Onset Date Comments MEDICATION REFILL 09/14/2016 Encounter Details Date Type Department Care Team (Late st Contact Info) Description 09/14/2016 Refill [facility] Pediatrics - Endocrinology [facility] [place] [address] Jesus Chandler APRN-PRESCHOOL TEACHER AIDE [address] [place] [address] MEDICATION REFILL Social History Tobacco Use Types [...] as of this encounter Visit Diagnoses Diagnosis Diabetes mellitus, new onset (HCC) Type II or unspecified type diabetes mellitus without mention of complication, not stated as uncontrolled documented in this encounter Care Teams Direct Sales Representative Relationship Specialty Start Date End Date Adele Rogers MD [address] [place] [address] PCP - General Family Medicine 09/02/15 documented as of this encounter
--- OUTSIDE RECORDS SUMMARY | 2024-10-09 14:56 | XMS_ITS | Encounter Summary ---
Author Organization [facility] Address [address] [facility] [place] [place] [address] Care Team Providers Care Breast Buffer Name Role Phone Adele Rogers MD Primary Care Provider [phone] Encounter Details Date Type Department Care Team (Late st Contact Info) Description 11/11/2021 Lab Requisition [facility] DermPath Lab [address] [place] [address] West Lai MD [address] [place] [address] Social History Tobacco Use Types Packs/Day Years [...] Charley Shelton RN documented in this encounter Plan of Treatment Not on file documented as of this encounter Procedures Procedure Name Priority Date/Time Associated Diagnosis Comments DERMATOPATHOLOGY Routine 11/06/2021 3:33 AM CDT documented in this encounter Results * DERMATOPATHOLOGY (11/06/2021 3:33 AM CDT) Case Report Dermatopathology Report Case: [id number] Authorizing Provider: West Lai MD Collected: 11/06/2021 03:33 AM Ordering Location: [facility] DermPath Lab Received: 11/11/2021 06:18 AM Pathologist: Sammy Aguilar MD Specimen: Skin, right abdomen 2 6:07 PM CDT DERMATOPATHOLOGY LABORATORY Final Diagnosis Specimen A. SKIN, right abdomen: INTRADERMAL MELANOCYTIC NEVUS, IRRITATED (D22.60) 2 6:07 PM CDT DERMATOPATHOLOGY LABORATORY Clinical History Irritated Nevus vs. Other. Path# [id number] 2 6:07 PM CDT DERMATOPATHOLOGY LABORATORY Gross Description Specimen A: Received is one formalin filled container labeled with the patient's name and designated right abdomen. The specimen consists of a shave biopsy measuring 2c5w5lc and it is bisected. Jar 0. 2 6:07 PM CDT DERMATOPATHOLOGY LABORATORY Microscopic Description Specimen A. SKIN, right abdomen: There are nests of melanocytes within the dermis that mature with depth. There is melanin pigment in the stratum corneum. 2 6:07 PM CDT DERMATOPATHOLOGY LABORATORY Disclaimer An external and internal positive and negative controls are appropriate for the histochemical, immunohistochemical and immunofluorescence stain(s) in this case (if any), except where stated explicitly. The performance characteristics of the stain(s) cited in this report were developed and its performance characteristic determined by the Dermatopathology Laboratory at [facility], directed by Dr. Madiha Aguilar. These tests need not be, and therefore are not, approved by the [place] Food and Drug Administration. The tests are used for clinical purposes. Billing Codes Specimen Charges Stain Charges 26886 1 2 6:07 PM CDT DERMATOPATHOLOGY LABORATORY Embedded Images 2 6:07 PM CDT DERMATOPATHOLOGY LABORATORY Pathology/Cytolo gy TISSUE SPECIMEN FROM SKIN / Unknown 11/06/2021 3:33 AM CDT 11/11/2021 6:18 AM CDT West Lai MD LAB - PATHOLOGY/CYTOLOGY ORDER TRUDY Final Result DERMATOPATHOLOGY LABORATORY [facility] - Department of Dermatology [facility] Medicine [address] [place] [address], [address] [phone] documented in this encounter Visit Diagnoses Not on filedocumented in this encounter Care Teams Breast Buffer Relationship Specialty Start Date End Date Adele Rogers MD [address] [place] [address] PCP - General Family Medicine 09/02/15 documented as of this encounter
--- OUTSIDE RECORDS SUMMARY | 2024-10-09 14:56 | XMS_ITS | Clinical Summary ---
Author Organization [facility] Address [address] [place] [address] Care Team Providers Care Employment Appeals Examiner Name Role Phone Adele Rogers MD Primary Care Provider Source Comments [facility] [place],non-owned Affiliates and Associated Physician Practices is amultiple site organization consisting of ambulatory clinics and hospital sitesin [place], [place], [place] and [place]. This disclosure is being madepursuant to the Care Everywhere program and may not contain all information available regarding this patient. Last updated 18.[facility] [place] Allergies No known active allergies Medications * Be aware that medications may not be up to date on this document. Alwaysverify current medications with the patient. Insulin Pen Needle (BD PEN NEEDLE OSIEL U/F) 32G X 4 MM MISCIndications:D iabetes mellitus, new onset (HCC) Use 1 Each as directed Use for injections 4-6 times daily. 200 Each 11 09/03/19 16 Active Blood Glucose Monitoring Suppl (FREESTYLE LITE) ESTEBAN Use as directed for blood glucose monitoring 5-9 times daily. 1 Device 1 09/09/19 16 Active Insulin Syringe-Needle U-100 (BD INSULIN SYRINGE ULTRAFINE) 31G X 15/64 0.5 ML syringeIndication s:Diabetes mellitus, new onset (HCC) Use for injections daily when off insulin pump 100 Syringe 3 09/15/19 17 Active lancets (FREESTYLE LITE)Indications: Diabetes mellitus, new onset (HCC) Use for blood glucose monitoring 9-10 times/day. 900 Each 3 09/15/19 17 Active vitamin D (CHOLECACIFEROL) 5000 UNITS capsule 06/23/19 18 Active folic acid (FOLVITE) 1 MG tablet 06/21/19 18 Active blood glucose (FREESTYLE TEST STRIP) test strip Use for blood glucose monitoring 5-9 times/day. Use with Omnipod pump 600 strip 2 11/26/19 18 Active blood glucose (FREESTYLE LITE STRIPS) test strip Test blood sugar up to 10 times daily. 300 strip 11 11/29/19 18 Active Continuous Blood Gluc Sensor (FREESTYLE NEEMA 14 DAY SENSOR) MISCIndications:U ncontrolled type 1 diabetes mellitus with hyperglycemia (HCC) Use 1 Each every 14 days 2 Each 5 06/20/19 19 Active Continuous Blood Gluc Sensor (FREESTYLE NEEMA 14 DAY SENSOR) MISC Use 1 Box as directed 1 Each 11 06/21/19 19 Active glucagon (GLUCAGON EMERGENCY) injection Inject 1 mg into muscle as needed For use in the event of severe hypoglycemia. 2 mg 11/29/19 19 Active insulin lispro (HUMALOG) 100 UNIT/ML vialIndications:T ype 1 diabetes mellitus without complication (HCC) Use as directed in insulin pump up to 50 units maximum daily 2 vial 3 11/29/19 19 Active insulin glargine (LANTUS) vialIndications:T ype 1 diabetes mellitus without complication (HCC) Inject 20 Units subcutaneously at bedtime For use in the event of insulin pump failure. 1 vial 3 11/29/19 19 Active acetone,urine, (KETOSTIX) stripIndications: Diabetes mellitus, new onset (HCC) Use as directed for urine ketone checks if blood sugar above 250 or if ill. 50 strip 11/29/19 19 Active Active Problems Problem Noted Date Diagnosed Date Type 1 diabetes mellitus without complication Overview (04/13/2016): Diagnosed antibody positive 09/02/15; started OmniPod on 12/04/15. Assessment & Plan (08/19/2017 12:46 PM SOCIAL WORKER AIDE): 1) no changes today 2) must check bg at least 4 times daily 3) return in [address] Andre Assessment & Plan (04/29/2017 1:00 PM SOCIAL WORKER AIDE): 1) increase basal from 0246-0947 to 0.75 units per hour 2) must check BG every morning, every day at lunch, dinner and bedtime 3) call in one week if bg's are trending out of range 4) may suspend pump for only 90 minutes per day 5) return in 3 months for Tom Assessment & Plan (07/20/2016 3:36 PM SOCIAL WORKER AIDE): 1) increase lunch to 1:10 2) call as needed to review blood sugars 3) return in 3 months, [address] Andre Assessment & Plan (09/29/2015 2:06 PM CDT): 1) decrease dinner to 1:25 2) I will order Dexcom sensor 3) call in blood sugars in 5 days Assessment & Plan (09/04/2015 11:45 AM CDT): Assessment: Ashanti Childs is a 15-year-old female with new diagnosis of Diabetes mellitus who present in DKA with altered mental status and was managed in the PICU. Transferred out yesterday and doing well. GCS 15 and blood sugars much improved, ranging from 65 to 136, now on subQ insulin. Plan: - Glucose checks 5 times daily - Carbohydrate counting diet - 1 unit of insulin per 8 grams of carbs with meals and snacks - Correct for glucose > 150 with meals - Zofran as needed for nausea - Diabetes education - Nutrition consult - Pepcid 10 mg BID - Nystatin cream TID - Tums 1 tablet prn for indigestion - Decrease Lantus to 20 units at dinner-time tonight - Lactulose 20 grams for constipation, can re-dose as necessary Assessment & Plan (09/04/2015 5:13 AM CDT): Assessment: 15 y/o female with new onset hyperglycemia suspicious for DM-1 admitted to PICU in DKA. Now transitioned off Insulin drip to Lantus, and stable for transfer out of PICU. Plan: - Glucose checks 5 times daily - Carbohydrate counting diet - 1 unit of insulin per 8 grams of carbs with meals - Correct for glucose > 150 with meals - Zofran as needed for nausea - Diabetes education - Nutrition consult - Next Lantus dose to be decided during rounds Resolved Problems Problem Noted Date Diagnosed Date Resolved Date Fever 09/02/2015 09/05/2015 Altered mental state 09/02/2015 016 Immunizations Immunization Administration Dates Next Due INFLUENZA VACCINE, QUADR. (F LUZONE; FLULAVAL; FLUARIX; AFLURIA QUADRIVALENT; 6MO+), 0.5 ML (IIV4) 05/09/2018,04/13/2016 Social History Tobacco Use Types Packs/Day Years Used Date Smoking Tobacco: Never Smokeless Tobacco: Never Comments No Sex and Gender Information Value Date Recorded Sex Assigned at Not on file Legal Sex Female 1:54 PM CDT Gender Identity Not on file Sexual Orientation Not on file Last Filed Vital Signs Vital Sign Reading Time Taken Comments Blood Pressure 118/68 11/28/2018 9:04 AM CDT Pulse 102 09/05/2015 2:42 PM CDT Temperature 36.7 C (98 F) 09/05/2015 2:42 PM CDT Respiratory Rate 16 09/05/2015 2:42 PM CDT Oxygen Saturation 99% 09/04/2015 10:00 PM CDT Inhaled Oxygen Concentration - - Weight 52.3 kg (115 lb 4.8 oz) 11/28/2018 9:04 A M CDT Height 165 cm (5' 4.96 ) 11/28/2018 9:04 AM CDT Body Mass Index 19.21 11/28/2018 9:04 AM CDT Plan of Treatment Health Maintenance Due Date Last Done Comments PAP SMEAR 2000 HIV SCREENING 2015 HPV VACCINE (1 - 3-dose series) 2015 DIABETES RETINOPATHY SCREENING 09/26/2015 CHLAMYDIA/GONORRHEA SCREENING 2016 HEPATITIS C SCREENING 03/13/2018 DIABETES-FOOT EXAM WITH MONOFILAMENT 2018 DIABETES-SERUM CREATININE 03/17/20182015, 09/04/2015, 09/03/2015, Additional history exists DTAP/TDAP/TD VACCINES (1 - Tdap) 2019 HEPATITIS B VACCINE (1 of 3 - 19+ 3-dose series) 2019 PNEUMOCOCCAL VACCINE (1 of 2 - PCV) 2019 DIABETES-HGB A1C 05/30/2019 11/28/2018, , 05/09/2018, Additional history exists COVID-19 VACCINE (1 - 2023- season) 2024 DEPRESSION SCREENING 06/13/2024 DIABETES - URINE PROTEIN SCREENING 06/13/2024 INFLUENZA VACCINE (Season Ended) 2025 05/09/2018, 04/13/2016 ZOSTER VACCINE (1 of 2) 2050 HIB VACCINE Aged Out No longer eligi ble based on patient's age to complete this topic MENINGOCOCCAL (Group B) VACCINE SHARED DECISION-MAKING Aged Out No longer eligible based on patient's age to complete this topic MENINGOCOCCAL GROUPS A/C/Y/W VACCINE Aged Out No longer eligible based on patient's age to complete this topic Procedures Procedure Name Priority Date/Time Associated Diagnosis Comments HEMOGLOBIN A1C - POCT (IP) BEAKER Routine 11/28/2018 9:13 AM CDT Type 1 diabetes mellitus without complication BASIC METABOLIC PANEL (CALCIUM TOTAL) AM Draw 09/05/2015 5:55 AM CDT from Last 3 Months or Most Recently Relevant to Health Maintenance Results * (ABNORMAL) HEMOGLOBIN A1C - POCT (IP) BEAKER (11/28/2018 9:13 AM CDT) Pathologist [facility] Hemoglobin A1c POCT 9.1(A) 3.4 - 6.1 % [facility] POCT TESTING QC Verified Yes Yes [facility] PO CT TESTING Blood BLOOD SPECIMEN / Unknown 11/28/2018 9:13 AM CDT us Huyen Andre MD LAB - POINT OF CARE ORDERABLES Final Result [facility] POCT TESTING [address] [place] [address], [facility] [phone] * (ABNORMAL) BASIC METABOLIC PANEL (CALCIUM TOTAL) (09/05/2015 5:55 AM CDT) Glucose 278(H) 70 - 105 mg/dL 09/05/2015 6:32 AM [facility] Sodium 143 136 - 145 mmol/L 09/05/2015 6:32 AM [facility] Potassium 3.3(L) 3.5 - 5.1 mmol/L 09/05/2015 6:32 AM [facility] Chloride 106 98 - 107 mmol/L 09/05/2015 6:32 AM [facility] CO2 32(H) 20 - 28 mmol/L 09/05/2015 6:32 AM [facility] Calcium 8.69(L) 9.08 - 10.48 mg/dL 09/05/2015 6:32 AM [facility] Anion Gap 5 5 - 20 mmol/L 09/05/2015 6:32 AM [facility] BUN 9.6 5.3 - 18.7 mg/dL 09/05/2015 6:32 AM [facility] Creatinine 0.48(L) 0.61 - 1.07 mg/dL 09/05/2015 6:32 AM [facility] eGFR by MDRD mL/min/1. 73m2 09/05/2015 6:32 AM [facility] Comment: eGFR calculations are not performed for children under 18 years old. eGFR by MDRD mL/min/1. 73m2 09/05/2015 6:32 AM [facility] Comment: eGFR calculations are not performed for children under 18 years old. Blood BLOOD SPECIMEN / Unknown Lab Venipuncture / Unknown 09/05/2015 5:55 AM T 09/05/2015 6:00 AM [facility] us Vandana L Светлана DO LAB - CHEMISTRY ORDERABLES Sandra l Result [facility] [place] [address] from Last 3 Months or Most Recently Relevant to Health Maintenance Insurance * Guarantor: [employer] Account Type Relation to Patient Date of Phone Billing Address [place] [address] Advance Directives * Full Code (Latest Code Status on File) Date Activated Date Inactivated Comments 09/03/2015 6:11 PM 09/05/2015 7:48 PM Care Teams Employment Appeals Examiner Relationship Specialty Start Date End Date Adele Rogers MD [address] [place] [address] PCP - General Family Medicine 09/02/15
--- OUTSIDE RECORDS SUMMARY | 2024-10-09 14:56 | XMS_ITS | Encounter Summary ---
Author Organization [facility] Care Team Providers Care Machine Packager Name Role Phone Flory Maciel MD Primary Care Provi peg Encounter Details Date Type Department Care Team (Latest Contact Info) Description 08/28/2015 Orders Only [facility] CLINCONV ProviderGaurang MD [address] [place] [address] Social History Tobacco Use Types Packs/Day Years Used Date Smoking Tobacco: Never Assessed Comments Unknown Sex and Gender Information Value Date Recorded Sex Assigned at Not on file Legal Sex Female 9:06 PM CAR CLEANING SUPERVISOR Gender Identity Not on file Sexual Orientation Not on file documented as of this encounter Plan of Treatment Not on file documented as of this encounter Procedures Procedure Name Priority Date/Time Associated Diagnosis Comments SCAN - PATHOLOGY 08/28/2015 12:0 0 AM CDT documented in this encounter Results * SCAN - PATHOLOGY (08/28/2015 12:00 AM CDT) Narrative 08/28/2015 12:00 AM CDT Ordered by an unspecified provider. Historical Provider Final Res ult documented in this encounter Visit Diagnoses Not on filedocumented in this encounter Additional Health Concerns Infection Onset Date Last Indicated Resolved Time COVID: Suspected 06/08/2024 06/08/2024 06/08/2024 10:42 AM CAR CLEANING SUPERVISOR documented as of this encounter Care Teams Machine Packager Relationship Specialty Start Date End Date Flory Maciel MD [address] [place] [address] PCP - General Family Medicine 11/16/18 documented as of this encounter
--- OUTSIDE RECORDS SUMMARY | 2024-10-09 14:56 | XMS_ITS | Encounter Summary ---
Author Organization [facility] Address [address] [place] [address] Care Team Providers Care Black Top Roller Name Role Phone Adele Rogers MD Primary Care Provider [phone] Reason for Visit * Reason Onset Date Comments Parent Return Call 05/11/2018 Please call carrie hinds the Lilo Encounter Details Date Type Department Care Team (Late st Contact Info) Description 05/11/2018 Telephone [facility] Pediatrics - Endocrinology [address] [place] [address] Aracely Cordero Parent Return Call (Please call dad guzman the Lilo) Social History Tobacco Use Types Packs/Day Years [...] 09/02/2015 7:30 PM DEANDRET Charley Shelton RN documented as of this encounter Mental Status * Does person have difficulty concentrating/remembering/making decisions? Answer Entry Date Author No 09/02/2015 7:30 PM Charley Anderson RN documented in this encounter Miscellaneous Notes * Telephone Encounter - Yuliana Hummel RN - 05/12/2018 2:35 PM CST Father states Ashanti complained of burning with Dexcom. He feels they want to try it rather than nothing at all. He stated she has been making up blood sugars and putting them in to pump. He states ifshe tries Lilo and it does not cause stinging he feels she will at least have something to use to give blood sugar data. Unsure if can order just 1 sensor. Called pharmacy to see if can order just one sensor. ANALYST * Telephone Encounter - Yuliana Hummel RN - 05/11/2018 5:36 PM CST Father called back and left message and I called him back and got voicemail. Left message to call office tomorrow to discuss. ANALYST documented in this encounter Plan of Treatment Not on file documented as of this encounter Visit Diagnoses Not on filedocumented in this encounter Care Teams Black Top Roller Relationship Specialty Start Date End Date Adele Rogers MD [facility] [place] [address] PCP - General Family Medicine 09/02/15 documented as of this encounter
[2024-10-09 20:36] LABS: Add Urine Microscopic? YES; Appearance Urine Cloudy (Clear); Bacteria Urine 4+ /hpf; Bilirubin Urine Negative (Negative); Blood Urine Trace (Negative); Color Urine Yellow (Yellow); Glucose Urine UA Negative (Negative); Ketones Urine 1+ mg/dL (Negative); Leukocyte Esterase Ur 2+ LEU/UL (Negative); Nitrate Urine Negative (Negative); Non Pathogenic Casts 0-2; Protein Urine Negative (Negative); Specific Grav Ur 1.019 (1.001-1.035); Squamous Epithelial Cell Urine None Seen /hpf (Few); Urobilinogen Urine 0.2 mg/dL (<2.0); WBC Urine >100 /hpf (0-3); pH Urine 6.5 (5.0-9.0)
== END 2024-10-09 13:42 | disposition home or self-care (01) ==
LOC: ANHGOSHLAB 13:44
PROVIDERS: Visit Provider Obstetrics & Gynecology
DX: R30.9 Painful micturition, unspecified (principal)
CPT/HCPCS: 81001; 87086; 87186